=== PATIENT | male | born 1980 | race Caucasian/White ===

== ENCOUNTER → 2016-06-15 | Outpatient (CLI) | payer OTHER ==
--- NOTE | 2016-06-15 17:47 | CT ---
CT Right Lower Extremity With Attention to the Knee Indication: Pain. Preoperative evaluation for right total knee replacement. Technique: Spiral imaging was obtained through the right knee at 1.25 mm slice thickness along with s piral imaging through the right hip and right ankle at 2.5 mm slice thickness. Data were transmitted for subsequent EBONY knee replacement. Dose reduction techniques utilized. Findings Right Hip: Mild arthritic changes are present. Right Knee: Moderate osteoarthritic changes of the knee worse in the medial compartment then lateral compartment with significant joint space narrowing and lateral bony spurring. The patellofemoral comp artment exhibits mild/moderate osteoarthritic changes. Right Ankle: Mild arthritic changes are present. Impressions 1. Moderate to severe osteoarthritic changes of the right knee worse in the medial compartment. 2. Data were transmitted for EBONY knee replacement surgery.
== END ==
LOC: FIMAGING 14:58
PROVIDERS: ATTEND Orthopaedic Surgery
DX: M17.11 Unilateral primary osteoarthritis, right knee (principal)

== ENCOUNTER 2016-06-23 11:15 | Observation (INO) | payer OTHER ==
--- NOTE | 2016-06-28 09:33 | GHP ---
[f rep st] PREOP HISTORY AND PHYSICAL DATE OF SURGERY: 06/29/2016 PROBLEM: Bilateral, right worse than left advanced medial compartment degenerative arthritis with varus deformity. HISTORY OF PRESENT ILLNESS: Fernando is a 36-year-old male, who will be undergoing a right knee partial knee replacement using the [employer]ight computer with Dr. Hernandez at the [facility] on June 29, 2016. 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. He has been followed for many years by Dr. Alejandro Carpenter. He has had 3 previous arthroscopic procedures on his right knee as well as a microfracture and PRP injections to both knees. He has used viscosupplementation many years ago without any significant improvement. He states that he has been bowlegged his whole life and that has progressively gotten worse over time. This past summer , he was at a [employer] where he had an increase in right knee pain that has not improved with a 2nd round of viscosupplementation as well as cortisone injections. He uses ice and Advil without any significant improvement. He also has tried educational interpreter braces without any improvement. Because of the progressive debilitating pain, advanced arthritis and recalcitrant response to conservative therapies, the patient has elected to proceed with a right partial knee replacement of the medial compartment. PAST MEDICAL HISTORY: Noncontributory. The patient is otherwise healthy. No history of MRSA, PE, DVT, CAD, or PR. CURRENT MEDICATIONS: None. MEDICATION ALLERGIES: None. SOCIAL HISTORY: The patient is . He works for [employer]. He is a nonsmoker. Occasional alcohol use. His activities include jiu Coquelux. FAMILY HISTORY: Noncontributory. PAST SURGICAL HISTORY: Bilateral knee arthroscopic surgeries x3. PHYSICAL EXAMINATION: GENERAL: He is an otherwise healthy-appearing 36-year- old male. VITAL SIGNS: Height 5 feet 10 inches tall, weight 210 pounds, BMI 30.1. HEENT: Head is normocephalic, atraumatic. Eyes are PERRLA. Conjunctiva and sclerae are clear. MOUTH: He has good oral hygiene without any loose teeth. LUNGS: Clear. HEART: Regular rate and rhythm without murmurs, gallops, or rubs. EXTREMITIES: Pertinent findings are limited to the patient's right knee. He has moderate to severe varus alignment. He has a mild intra-articular effusion with medial joint line tenderness. He lacks a few degrees of terminal knee extension. He has 120 degrees of knee flexion. There is mild subpatellar crepitus noted with active knee extension. He has pseudolaxity noted of the MCL. The knee is otherwise stable to exam. DIAGNOSTIC IMAGING: Recent x-rays taken of the patient's right knee show severe [id number] degenerative arthritis of the right and left medial compartments. His arthritis is isolated to the medial compartments with peripheral osteophyte formation and increased subchondral sclerosis. IMPRESSION: Bilateral knee, right worse than left, severe degenerative arthritis of the medial compartment. PLAN: For the patient to undergo a right partial knee replacement of the medial compartment using the [employer]ight computer with Dr. Hernandez at the [facility] on June 29, 2016. The surgery has been described to the patient including the risks, benefits, and expectations. Because of his young age, he understands the potential need for revision surgery or conversion to a total knee replacement in the future. He understands the risk of postoperative stiffness, possible need for manipulation, infection, or blood vessel/nerve injury. All his questions have been answered, and he consents to surgery here in the office today. The patient does not list a PCP. Copy requested to: Dr. Hernandez /[id number]/MODL MTDD
[2016-06-29] MEDS ORDERED: ceFAZolin 1 GM/5 ML SYR ONE (08:04)
[2016-06-29] MEDS ORDERED: FAMOTIDINE 20 MG TAB ONE (08:52)
[2016-06-29] MEDS ORDERED: CEFAZOLIN 2 GM/DEXTROSE/100 ML BAG IV ONE (08:52)
[2016-06-29] MEDS ORDERED: DEXAMETHASONE 4 MG/ML VIAL ONE (08:52)
[2016-06-29] MEDS ORDERED: ACETAMINOPHEN 325 MG TAB ONE (08:52)
[2016-06-29 09:21] LABS: % IMMATURE GRANULYOCYTES 0.4 % (0.0-1.1); ABSOLUTE IMMATURE GRANULOCYTES 0.02 10^3/uL (0.00-0.10); ADD DIFF? NO; ADD MORPH? NO; ADD SCAN? NO; ATYPICAL LYMPHOCYTE FLAG 10 (0-99); FRAGMENT RBC FLAG 0 (0-99); HEMOGLOBIN 13.9 g/dL (13.7-17.5); LEFT SHIFT FLG 0 (0-99); LIPEMIA HEMOLYSIS FLAG 90 (0-99); MEAN CELL HEMOGLOBIN 30.9 pg (27.9-34.1); MEAN CELL HEMOGLOBIN CONCENTR. 34.8 g/dL (32.4-36.7); MEAN CELL VOLUME 88.9 fL (81.5-99.8); MEAN PLATELET VOLUME 9.4 fL (8.7-11.7); PLATELET CLUMPS FLAG 10 (0-99); PLATELET COUNT 200 10^3/uL (150-400); RED CELL DISTRIBUTION WIDTH 12.4 % (11.5-15.2)
[2016-06-29] MEDS ORDERED: CEFAZOLIN 2 GM/DEXTR 100 ML IV ONE (09:30)
[2016-06-29] MEDS ORDERED: DEXAMETHASONE 4 MG/ML VIAL IVP ONE (09:30)
[2016-06-29] MEDS ORDERED: ACETAMINOPHEN 325 MG TAB PO ONE (09:30)
[2016-06-29] MEDS ORDERED: POVIDONE-IODINE 20 ML in SODIUM CL IRRIG SOLUTION 500 ML IRR ONE (09:30)
[2016-06-29] MEDS ORDERED: ROPI/epiNEPH/KETOROLAC JOINT COCKTAIL IU ONE (09:30)
[2016-06-29] MEDS ORDERED: CHLORHEXIDINE GLUC HIBICLENS 118 ML BTL TP ONE (09:30)
[2016-06-29] MEDS ORDERED: NS IV ONE (09:30)
[2016-06-29] MEDS ORDERED: TRANEXAMIC ACID IV ONE (09:30)
[2016-06-29] MEDS ORDERED: FAMOTIDINE 20 MG TAB PO ONE (09:30)
[2016-06-29] MEDS ORDERED: LR 1,000 ML IV ONE (09:34)
[2016-06-29] MEDS ORDERED: LIDOCAINE 1% 5 ML SDV ID PRN (09:34)
[2016-06-29] MEDS ORDERED: fentaNYL 100 MCG/2 ML INJ ONE ×5 (09:39→13:39)
[2016-06-29] MEDS ORDERED: PROPOFOL/EMULSION 500 MG/50 ML BOTTLE IV ONE ×3 (09:39→12:07)
[2016-06-29] MEDS ORDERED: MIDAZOLAM 2 MG/2 ML VIAL ONE ×2 (09:39→10:21)
[2016-06-29] MEDS ORDERED: ROPIVACAINE HCL 150 MG/30 ML INJ ONE (12:06)
[2016-06-29] MEDS ORDERED: LIDOCAINE 2% 100 MG/5 ML SYR IVP ONE (12:06)
[2016-06-29] MEDS ORDERED: ESMOLOL HCL 100 MG/10 ML VIAL IV ONE (12:44)
[2016-06-29] MEDS ORDERED: PROMETHAZINE HCL 25 MG/ML VIAL IVP PRN (12:49)
[2016-06-29] MEDS ORDERED: POLYETHYLENE GLYCOL 3350 17 GM PKT PO PRN (12:49)
[2016-06-29] MEDS ORDERED: PHARMACY PAIN CONSULT 1 EA MISC PRN (12:49)
[2016-06-29] MEDS ORDERED: ONDANSETRON 4 MG/2 ML VIAL IVP PRN (12:49)
[2016-06-29] MEDS ORDERED: CYCLOBENZAPRINE 10 MG TAB PO PRN (12:49)
[2016-06-29] MEDS ORDERED: MAGNESIUM HYDROXIDE 30 ML UDCUP PO PRN (12:49)
[2016-06-29] MEDS ORDERED: KETOROLAC 30 MG/1 ML SDV IVP PRN (12:49)
[2016-06-29] MEDS ORDERED: BISACODYL 10 MG SUPP PR PRN (12:49)
[2016-06-29] MEDS ORDERED: DIPHENOXYLATE/ATROPINE LOMOTIL 1 TAB PO PRN (12:49)
[2016-06-29] MEDS ORDERED: PROMETHAZINE HCL 25 MG SUPPR PR PRN (12:49)
[2016-06-29] MEDS ORDERED: TEMAZEPAM 15 MG CAP PO PRN (12:49)
[2016-06-29] MEDS ORDERED: NS 500 ML IV PRN (12:49)
[2016-06-29] MEDS ORDERED: LACTULOSE 20 GM/30 ML UDCUP PO PRN (12:49)
[2016-06-29] MEDS ORDERED: traMADol 50 MG TAB PO PRN (12:49)
[2016-06-29] MEDS ORDERED: METOCLOPRAMIDE 10 MG/2 ML VIAL IVP PRN (12:49)
[2016-06-29] MEDS ORDERED: diphenhydrAMINE 25 MG CAP PO PRN (12:49)
[2016-06-29] MEDS ORDERED: LR 1,000 ML IV SCH (13:00)
--- NOTE | 2016-06-29 13:04 | POSTOPPROG ---
Post Op Note Date of Operation: 06/29/16 Surgeon: Dave Hernandez Assurance Senior Manager Insurance: [employer] Anesthesiologist: Oscar Anesthesia: IV Sedation, Spinal Post-op Diagnosis: right knee medial comp arthritis Procedure: right knee medial Lance uniarthroplasty Inf/Abcess present in the surg proc area at time of surgery?: No EBL: 50-100
[2016-06-29] MEDS ORDERED: ONDANSETRON 4 MG/2 ML VIAL ONE (13:39)
[2016-06-29] MEDS ORDERED: HYDROmorphONE/DILAUDID 1 MG/ML SYR ONE (13:39)
[2016-06-29] MEDS ORDERED: HYDROCODONE/APAP 5/325 TAB ONE (13:39)
[2016-06-29] MEDS ORDERED: KETOROLAC 30 MG/1 ML SDV ONE (13:53)
[2016-06-29] MEDS ORDERED: oxyCODONE IR 5 MG TAB ONE (13:54)
--- NOTE | 2016-06-29 14:23 | GOP ---
[f rep st] OPERATIVE REPORT DATE OF OPERATION: 06/29/2016 SURGEON: Dave Hernandez MD TEA LEAF READER: Ata Campa CFA. ANESTHESIA: A combination of Marcaine spinal and IV sedation and adductor canal block, by Usama Moore MD. PREOPERATIVE DIAGNOSIS: Right knee medial compartment degenerative arthritis. POSTOPERATIVE DIAGNOSIS: Right knee medial compartment degenerative arthritis. PROCEDURE PERFORMED: Right knee medial compartment Lance Uni arthroplasty. FINDINGS: DESCRIPTION OF PROCEDURE: The patient was given 2 g of preoperative Ancef within 60 minutes of surgery. He also received IV tranexamic acid at a dose of 10 mg/kg. He was placed on the operating room table and given spinal anesthesia with Marcaine by Dr. Felix Moore. He was then placed supine and given sedation. His right lower extremity was prepped with ChloraPrep from the upper thigh tourniquet to the tips of the toes. It was draped free using sterile sheets, towels, and Ioban plastic drape. The lower leg was wrapped with compressive Coban. His leg was exsanguinated with elevation and a 6-inch compressive wrap, and the pneumatic tourniquet was inflated to 275 mmHg. The World Health Organization time-out was performed to verify the correct surgical site and the correct patient identity. The [employer] time-out was also performed. The [employer]ron[employer]3Dayo leg holding device was sterilely attached to the operating room table and used throughout the procedure, to help position the knee. Two 3 mm partially threaded pins were inserted in the anteromedial cortex of the femur, approximately 4-5 inches proximal to the superior pole of the patella. They were inserted in a bicortical fashion. Two 3 mm partially threaded pins were also inserted in a bicortical fashion in the anteromedial cortex of the tibia, about 4-5 inches distal to the tibial tubercle. The computer arrays were attached to the femur and tibia. I confirmed that the arrays were visualized by the computer. I made a 4 inch straight medial parapatellar incision. Subcutaneous tissues were sharply divided and hemostasis was obtained using electrocautery. The capsule and synovium were opened in a medial parapatellar fashion. He had significant degenerative arthritis in his medial compartment. Osteophytes were present along the rim of the medial femoral condyle and the tibial plateau. The medial capsule and periosteum were elevated off the rim of the medial tibial plateau, all the way around to the posteromedial corner. I lightly released the medial collateral ligament enough to balance the medial side of the knee. A small portion of the fat pad was excised in order to improve exposure. The articular surface of his patellofemoral joint was in excellent condition. What I could see of the lateral compartment showed the articular surfaces were in good condition. His ACL was intact. The femoral and tibial check points were inserted, checked, and confirmed. I performed the hip registration. This was followed by registration of the medial and lateral malleoli. The bony anatomy of the femur and tibia in the medial compartment were registered. Joint balancing was checked and captured in multiple degrees of flexion from 10 degrees to 100 degrees. I used a curved osteotome in the medial compartment to properly tension the medial collateral ligament. Implant position and templating were performed. I made some minor adjustments in the femoral component to achieve proper balance of his medial collateral ligament, throughout the range of motion. I confirmed the preoperative planning of a size 5 on the femur and size 5 on the tibia. The robotic arm was registered. I did the burring on the femoral condyle 1st. This was followed by the burring of the tibial plateau. The cut edges were cleaned up with a rongeur. The posterior horn of his medial meniscus was excised I did a trial reduction with the size 5 femur, the size 5 tibial tray, and the 8 mm insert. With the components in place, he had full extension and 135 degrees of flexion. His medial collateral ligament was properly tensioned in full extension and 90 degrees of flexion. A 2nd dose of IV tranexamic acid was given at a dose of 10 mg/kg. The surfaces were prepared for cementing. They were carefully cleaned with the pulsating lavage. The CarboJet device was used to blow dry the cancellous surfaces. A single batch of methylmethacrylate cement with tobramycin was mixed. While it was still in a semiliquid state, I packed cement in the peg holes of the tibia, and layered some additional cement on the undersurface of the tray. The tray was then inserted and tapped securely into place. Excess cement was removed before it hardened. I then packed a small amount of cement in the peg holes for the femur, and additional cement on the back of the femoral component. This was inserted and tapped securely into place. Excess cement was removed before it hardened. The size 5, 8 mm polyethylene tibial insert was inserted and locked into place. Everything was held in place while the cement hardened. I checked to make sure I removed all the cement, particularly posteriorly. He had full extension and 130 degrees of flexion, with proper balance of his medial collateral ligament throughout the range of motion. The tourniquet was deflated. Total tourniquet time was 1 hour and 42 minutes. The 2 pins in the femur and 2 pins in the tibia were removed. The tibial and femoral check points were removed. 40 mL of the joint anesthetic cocktail were injected into the medial capsule, the vastus medialis tendon and muscle, and the subcutaneous tissues along the skin edges. A drain was not used. The vastus medialis portion of the extensor mechanism was repaired with several interrupted [id number] #2 FiberWire sutures. The capsule and synovium were then closed with a running #2 barbed Ethicon Stratafix PDO suture. The subcutaneous tissues were closed with a running 0 barbed Ethicon Stratafix Monoderm suture. The skin was closed with a running 3-0 barbed Ethicon Stratafix Monoderm subcuticular suture. The skin edges were reapproximated with half-inch Steri-Strips. Each puncture wound was closed with a single interrupted 4-0 Monocryl subcuticular suture and a Steri- Strip. The wound was covered with Xeroform gauze and flat 4 x 4's, and the knee was wrapped with a Kerlix and 6-inch compressive wrap. A long-leg VIRA stocking was applied followed by the cooling device. The patient wore a stocking and SCD on the opposite leg. I used the Lance Restoris MCK femoral component in size 5. The triple tibial tray was a Lance Restoris MCK in size 5. The tibial insert was a size 5 with 8 mm thickness of polyethylene. Ata Campa acted as the surgical scrub technician. His assistance was a medical necessity. In the recovery room for additional postoperative pain control, Dr. Moore performed an adductor canal block to the right lower extremity. /[id number]/MODL MTDD
--- NOTE | 2016-06-29 14:33 | GDS ---
[f rep st] DISCHARGE SUMMARY ADMISSION DIAGNOSIS: Right knee medial compartment degenerative arthritis. DISCHARGE DIAGNOSIS: Right knee medial compartment degenerative arthritis. OPERATION PROCEDURE: 06/29/2016, right knee medial compartment Lance Uni arthroplasty. POSTOPERATIVE COMPLICATIONS: None. CONDITION ON DISCHARGE: Improved. DESCRIPTION OF HOSPITAL COURSE: The patient was admitted to the hospital on the morning of surgery. His admission CBC was normal. The same day, under a combination of Marcaine spinal and IV sedation and adductor canal block, he underwent a medial compartment right knee Lance Uni arthroplasty. Postoperatively, he was treated with multimodal DVT prophylaxis, including aspirin. On the 1st postoperative day, he was seen by physical therapy and made good progress with ambulation. He was discharged the following day. DISPOSITION: The patient is discharged to his home. I will see him back in the office in 10-12 days. He may progress to full weightbearing on the right as tolerated. Continue aspirin 325 mg p.o. daily for 21 days. Continue VIRA stockings for 1 week. He has prescriptions for oxycodone and tramadol for pain control. He will go to outpatient physical therapy. /[id number]/MODL MTDD
--- NOTE | 2016-06-29 15:25 | DX ---
Portable Right Knee, AP and Lateral Views, at 1:57 p.m. CLINICAL HISTORY: 36-year-old male in the PACU after a right knee arthroplasty. Comparison study: CT scan, dated June 15, 2016. FINDINGS: The patient has undergone a medial femoral-tibial compartment hemiarthroplasty with anatomi c alignment of the femoral and tibial components. There is degenerative pinnacling of the tibial spin es. Posterior patellar degenerative osteophytes are seen. A pneumatic cuff was projected over the upp er calf. There are ghosting artifacts from previously placed and subsequently removed orthopedic hard bridges in the femoral and tibial diaphyses. IMPRESSION: Status post medial femoral-tibial compartment Makoplasty (hemiarthroplasty), with anatomi c alignment.
[2016-06-29] MEDS: TRANEXAMIC ACID 650 MG TAB PO SCH ×2 (16:44→21:19)
[2016-06-29] MEDS: oxyCODONE IR 5 MG TAB PO PRN ×3 (16:45→23:47)
[2016-06-29] MEDS: ACETAMINOPHEN 325 MG TAB PO SCH ×2 (18:25→23:47)
[2016-06-29] MEDS: ceFAZolin 2 GM/DEXTROSE 100 ML IV SCH (18:26)
[2016-06-29] MEDS: SENNOSIDES/DOCUSATE SODIUM TAB PO SCH (21:19)
[2016-06-29] MEDS: ASPIRIN 325 MG TAB PO SCH (21:19)
[2016-06-29] MEDS: FAMOTIDINE 20 MG TAB PO SCH (21:19)
[2016-06-29] MEDS: ONDANSETRON DISINTEGRATING 4 MG TAB PO PRN (21:24)
[2016-06-30] MEDS: ceFAZolin 2 GM/DEXTROSE 100 ML IV SCH (02:56)
[2016-06-30] MEDS: oxyCODONE IR 5 MG TAB PO PRN ×3 (02:56→11:36)
[2016-06-30 05:10] LABS: HEMATOCRIT 34.9 % (40.0-51.0); HEMOGLOBIN 12.1 g/dL (13.7-17.5)
[2016-06-30] MEDS: ACETAMINOPHEN 325 MG TAB PO SCH (06:05)
[2016-06-30] MEDS: ONDANSETRON DISINTEGRATING 4 MG TAB PO PRN (06:06)
[2016-06-30 07:33] VITALS: BP 116/68; PULSE 77; RESP 14; TEMP 97.5; O2SAT 98
[2016-06-30] MEDS: TRANEXAMIC ACID 650 MG TAB PO SCH (08:18)
[2016-06-30] MEDS: FAMOTIDINE 20 MG TAB PO SCH (08:18)
[2016-06-30] MEDS: SENNOSIDES/DOCUSATE SODIUM TAB PO SCH (08:19)
[2016-06-30] MEDS: ASPIRIN 325 MG TAB PO SCH (08:19)
[2016-06-30] MEDS ORDERED: FERROUS SULFATE 140 MG TAB.ER PO SCH (09:00)
--- NOTE | 2016-06-30 09:46 | SOAPPROG ---
SOAP Progress Note Assessment/Plan: Assessment: Afebrile. Moderate pain. Up and walking in garcia. H/H is good. Dsg is dry. Films look good. Plan: DC today. 06/30/16 09:45 Objective: Vital Signs Temp Pulse Resp BP Pulse Ox 36.4 C 77 14 116/68 98 06/30/16 07:32 06/30/16 07:32 06/30/16 07:32 06/30/16 07:32 06/30/16 07:32 Laboratory Results 06/30/16 04:25 06/29/16 06/30/16 07/01/16 05:59 05:59 05:59 Intake Total 2200 Output Total 20 Balance 2180 ICD10 Worksheet Patient Problems: Problems Problem Status Diagnosed Osteoarthritis of right knee Acute
== END 2016-06-30 11:40 | disposition home or self-care (01) ==
LOC: F3N 06-29 08:29 → INTOOBSV 06-29 08:29 → F3N 06-29 15:06
PROVIDERS: ADMIT Orthopaedic Surgery; ATTEND Orthopaedic Surgery
PROC: 0SRC0J9 Replacement of Right Knee Joint with Synthetic Substitute, Cemented, Open Approach (ICD-10-PCS; principal; 2016-06-29 10:15)
DX: M17.0 Bilateral primary osteoarthritis of knee (principal); M21.161 Varus deformity, not elsewhere classified, right knee; M21.162 Varus deformity, not elsewhere classified, left knee
CPT/HCPCS: 27446; 73560; 97110; 97116; 97161; 97165; 97530; G0378; C1713; J0171; J0690; J1100; J1170; J1885; J2001; J2250; J2405; J2704; J2795; J3010